=== PATIENT | male | born 1950 | race Caucasian/White ===

== ENCOUNTER → 2020-10-21 11:54 | Outpatient (CLI) | payer MEDICARE, OTHER, SELFPAY ==
[2020-10-21 19:22] LABS: COVID19 - ORCAS (NP or Nasal) Negative (Negative)
== END ==
PROVIDERS: Visit Provider Physician Assistant Medical
DX: Z20.822 Contact with and (suspected) exposure to COVID-19 (principal)
CPT/HCPCS: U0003

== ENCOUNTER → 2024-12-23 15:51 | Outpatient (CLI) | payer MEDICARE, OTHER, SELFPAY ==
[2024-12-23 16:32] LABS: Strep Grp A by PCR Rapid Negative (Negative)
== END ==
PROVIDERS: Visit Provider Family Medicine
DX: J02.9 Acute pharyngitis, unspecified (principal)
CPT/HCPCS: 87070; 87651